=== PATIENT | male | born 1975 | race Caucasian/White ===

== ENCOUNTER 2019-01-21 07:52 | Emergency (ER) | payer OTHER ==
[2019-01-21 08:03] VITALS: BP 121/76
[2019-01-21] MEDS ORDERED: Ibuprofen ADULT LIQ* 600 MG/30 ML UDC PO ONE (08:32)
--- NOTE | 2019-01-21 08:32 | UC ---
UC General HPI - HPI Summary HPI Summary: pt is c/o pain to the outside of his L hip x 2 months with worsening the past 2- 3 days. no hx injury. sleeping with pillow between his knees and took a motrin last pm which helped a little. no fever, swelling or other joint pains. - History of Current Complaint Chief Complaint: UCGeneralIllness Stated Complaint: LEFT HIP PAIN Time Seen by Provider: 01/21/19 08:25 Hx Obtained From: Patient Onset/Duration: Gradual Onset Timing: Constant Pain Intensity: 5 Aggravating: movement Associated Signs & Symptoms: Negative: Weakness - Allergy/Home Medications Allergies/Adverse Reactions: Allergies Allergy/AdvReac Type Severity Reaction Status Date / Time No Known Allergies Allergy Verified 01/02/15 09:40 Home Medications: Home Medications Atorvastatin* [Lipitor*] 40 mg PO 1700 01/21/19 [History Confirmed 01/21/19] Ibuprofen TAB* [Motrin TAB* 800 MG] 800 mg PO Q6H PRN 01/21/19 [History Confirmed 01/21/19] Nicotine PATCH 21 MG/24 HR* 21 mg TRANSDERM DAILY 01/21/19 [History Confirmed ] Sotalol TAB* [Betapace 80 MG TAB*] 80 mg PO BID 01/21/19 [History Confirmed ] Varenicline Tartrate [Chantix] 1 mg PO DAILY 01/21/19 [History Confirmed ] PMH/Surg Hx/FS Hx/Imm Hx Endocrine History: Dyslipidemia Cardiovascular History: Atrial Fibrillation - Surgical History Surgical History: None - Family History Known Family History: Positive: Non-Contributory - Social History Occupation: Employed Full-time Alcohol Use: Occasionally Substance Use Type: None Smoking Status (MU): Former Smoker When Did the Patient Quit Smoking/Using Tobacco: 2 months Review of Systems All Other Systems Reviewed And Are Negative: No Constitutional: Negative: Fever, Chills Skin: Negative: Rash Musculoskeletal: Negative: Decreased ROM, Edema Neurological: Negative: Weakness, Paresthesia, Numbness Physical Exam Triage Information Reviewed: Yes Appearance: Well-Appearing Vital Signs: Initial Vital Signs Temp 97.7 F 01/21/19 08:01 Pulse 58 01/21/19 08:01 Resp 20 01/21/19 08:01 BP 121/76 01/21/19 08:01 Pulse Ox 100 01/21/19 08:01 Vital Signs Reviewed: Yes Musculoskeletal: Positive: Other: - Pelvis/hips: no gross deformity, swelling or rash. point tender over the L greater trochanter. rom to L hip is intact but causes pain. R hip is non tender with full painless rom. rest of BLE's without deformity, swelling or discoloration and gross s/v/m is intact. Neurological: Positive: Alert Psychological: Positive: Age Appropriate Behavior Skin Exam: Normal Diagnostics - Radiology No standard instances Radiology Interpretation Completed By: Radiologist - 1. NO EVIDENCE FOR FRACTURE , IF THE PATIENT'S SYMPTOMS PERSIST RECOMMEND FOLLOW-UP IMAGING. 2. AN OVOID NONAGGRESSIVE APPEARING SCLEROTIC LESION IN THE MEDIAL ASPECT OF THE LEFT FEMORAL NECK IS STATISTICALLY WEB PRODUCER OF A BONE ISLAND. Course/Dx - Differential Dx - Multi-Symptom Differential Diagnoses: Other - no concern for infection. no fx or dislocation. non aggressive lesion left femoral neck, doubt source of pain. will tx with nsaid and refer to orthopedics. pt advised of xray result. - Diagnoses Provider Diagnosis: Hip pain, left, Bone lesion Discharge - Sign-Out/Discharge Documenting (check all that apply): Patient Departure All imaging exams completed and their final reports reviewed: No Studies - Discharge Plan Condition: Stable Disposition: HOME Prescriptions: Naproxen [Naprosyn 500 mg tab] 500 mg PO BID 5 Days #10 tablet Patient Education Materials: Hip Pain (ED) Referrals: Hema Fine MD [Medical Doctor] - As Soon As Possible - Billing Disposition and Condition Condition: STABLE Disposition: Home
== END 2019-01-21 09:29 | disposition home or self-care (01) ==
LOC: UCCORT 07:52
DX: M25.552 Pain in left hip (principal); M89.9 Disorder of bone, unspecified
CPT/HCPCS: 99212; A9270-GY; G0463